=== PATIENT | male | born 1940 | race African-American/Black ===

== ENCOUNTER 2019-03-05 23:38 | Inpatient (IN) | payer MEDICARE, MEDICAID ==
[~2019-03-05] VITALS: Ht 172.7 cm; Wt 77.1 kg
[2019-03-06 00:38] LABS: BASOPHILS % 1.1 % (0.0-2.0); EOSINOPHILS % 3.2 % (0.0-5.0); HEMATOCRIT. 36.4 % (42.0-52.0); HEMOGLOBIN. 11.9 g/dL (14.0-18.0); LYMPHOCYTES % 34.7 % (20.0-50.0); MEAN CORPUSCULAR HEMOGLOBIN 28.3 pg (28.0-32.0); MEAN CORPUSCULAR VOLUME 86.2 fL (80.0-94.0); MEAN PLATELET VOLUME 8.8 fl (7.4-10.4); MONOCYTES % 10.6 % (2.0-8.0); NEUTROPHILS % 50.4 % (40.0-76.0); PLATELET 168 x1000/uL (130-400); RED BLOOD CELL COUNT 4.22 mill/uL (4.7-6.1); RED CELL DISTRIBUTION WIDTH 13.1 % (11.6-14.6)
[2019-03-06 00:39] LABS: CHLORIDE 107 mEq/L (98-107)
[2019-03-06 00:41] LABS: INR 1.1; PROTHROMBIN TIME 11.2 sec (9.6-11.0)
[2019-03-06 00:48] LABS: LDL CHOLESTEROL 87 mg/dL (5-100)
[2019-03-06] MEDS ORDERED: ASPIRIN 81MG TABLET PO ONE (02:30)
[2019-03-06 06:27] LABS: CLARITY URINE CLEAR (CLEAR); COLOR URINE YELLOW (YELLOW); KETONES URINE TRACE (NEGATIVE); LEUKOCYTE ESTERASE URINE NEGATIVE (NEGATIVE); NITRITE URINE NEGATIVE (NEGATIVE); OCCULT BLOOD URINE NEGATIVE (NEGATIVE); PROTEIN URINE NEGATIVE (NEGATIVE); SPECIFIC GRAVITY URINE 1.025 (1.005-1.030); UROBILINOGEN URINE 0.2 E.U./dL (0.2-1.0)
[2019-03-06 12:00] VITALS: BP 151/62
[2019-03-06] MEDS ORDERED: NON FORMULARY PATIENT HOME MED XX SCH (12:30)
[2019-03-06] MEDS ORDERED: TADA5TAB MT (13:19)
[2019-03-06] MEDS ORDERED: MIRA50TA PO (13:20)
[2019-03-06] MEDS ORDERED: TAMS0.4C31 PO (13:22)
[2019-03-06 14:00] VITALS: BP_SYST 116; BP_SYST 129; BP_SYST 138; BP_DIAS 61; BP_DIAS 66; BP_DIAS 71
[2019-03-06] MEDS: TADALAFIL 5 MG PO SCH (15:05)
[2019-03-06 16:53] VITALS: BP 151/62
[2019-03-06] MEDS ORDERED: SODIUM CHLORIDE 0.9% 500 ML IV ONE (17:45)
[2019-03-06 20:00] VITALS: BP_SYST 129; BP_SYST 133; BP_DIAS 60; BP_DIAS 62
[2019-03-06] MEDS ORDERED: TAMSULOSIN HCL 0.4MG SR CAPSULE PO SCH ×2 (21:00)
[2019-03-06 22:01] LABS: EOSINOPHILS % 3.1 % (0.0-5.0); HEMATOCRIT. 37.8 % (42.0-52.0); HEMOGLOBIN. 12.8 g/dL (14.0-18.0); LYMPHOCYTES % 32.2 % (20.0-50.0); MEAN CORPUSCULAR HEMOGLOBIN 29.3 pg (28.0-32.0); MEAN CORPUSCULAR VOLUME 86.1 fL (80.0-94.0); MONOCYTES % 9.6 % (2.0-8.0); NEUTROPHILS % 54.1 % (40.0-76.0); PLATELET 172 x1000/uL (130-400); RED BLOOD CELL COUNT 4.39 mill/uL (4.7-6.1); RED CELL DISTRIBUTION WIDTH 13.1 % (11.6-14.6)
[2019-03-06 22:06] LABS: CHLORIDE 108 mEq/L (98-107)
[2019-03-06 22:11] LABS: PHOSPHORUS 3.2 mg/dL (2.5-4.9)
[2019-03-07] VITALS: BP 130/65
[2019-03-07 04:00] VITALS: BP 133/80
[2019-03-07 06:03] LABS: BASOPHILS % 0.8 % (0.0-2.0); EOSINOPHILS % 2.8 % (0.0-5.0); HEMOGLOBIN. 12.2 g/dL (14.0-18.0); LYMPHOCYTES % 25.5 % (20.0-50.0); MEAN CORPUSCULAR HEMOGLOBIN 29.3 pg (28.0-32.0); MEAN CORPUSCULAR VOLUME 86.2 fL (80.0-94.0); MEAN PLATELET VOLUME 9.3 fl (7.4-10.4); NEUTROPHILS % 60.9 % (40.0-76.0); PLATELET 165 x1000/uL (130-400); RED BLOOD CELL COUNT 4.18 mill/uL (4.7-6.1)
[2019-03-07 06:54] LABS: CHLORIDE 107 mEq/L (98-107)
[2019-03-07 08:00] VITALS: BP_SYST 116; BP_SYST 130; BP_SYST 132; BP_DIAS 68; BP_DIAS 70
[2019-03-07] MEDS ORDERED: ASPIRIN 81MG TABLET PO SCH (09:00)
[2019-03-07] MEDS: TADALAFIL 5 MG PO SCH (09:07)
[2019-03-07 12:00] VITALS: BP 123/56
[2019-03-07 16:00] VITALS: BP_SYST 116; BP_SYST 131; BP_SYST 148; BP_DIAS 70; BP_DIAS 71
[2019-03-07 16:31] VITALS: BP 148/71
[2019-03-07] MEDS ORDERED: SODIUM CHLORIDE 0.9% 500 ML IV ONE (17:45)
== END 2019-03-07 17:15 | disposition home health service (06) | DRG 312 ==
LOC: ER 23:38 → 7WST 03-06 02:21 → EDBEDREQSVC 03-06 02:23 → EDBEDREQTM 03-06 02:23 → EDBEDREQ 03-06 02:23 → ENRESERV 03-06 09:52 → CANRESERV 03-06 09:52 → ENRESERV 03-06 10:35
PROVIDERS: ADMIT Internal Medicine; ATTEND Internal Medicine
DX: I95.2 Hypotension due to drugs (principal); H91.90 Unspecified hearing loss, unspecified ear; G90.8 Other disorders of autonomic nervous system; N40.1 Benign prostatic hyperplasia with lower urinary tract symptoms; N32.81 Overactive bladder; R59.9 Enlarged lymph nodes, unspecified; T44.6X5A Adverse effect of alpha-adrenoreceptor antagonists, initial encounter; T50.995A Adverse effect of other drugs, medicaments and biological substances, initial encounter; Y92.89 Other specified places as the place of occurrence of the external cause
CPT/HCPCS: 36415; 71045; 80048; 80069; 82962; 83721; 83735; 84100; 84484; 84550; 93005; 96361; 96374; 96375; 99285; J7040

== ENCOUNTER → 2019-03-24 | Outpatient (CLI) | payer MEDICARE, MEDICAID ==
[~2019-03-24] MED LIST: MIRA50TA PO; TADA5TAB MT; TAMS0.4C31 PO
== END | disposition home or self-care (01) ==
LOC: CARD 09:24
PROVIDERS: ATTEND Psychiatry & Neurology Neurology
DX: R41.3 Other amnesia (principal)

== ENCOUNTER 2019-08-15 15:29 | Emergency (ER) | payer MEDICARE, MEDICAID ==
[~2019-08-15] VITALS: Ht 172.7 cm; Wt 75.0 kg
[2019-08-15 17:51] LABS: CLARITY URINE CLEAR (CLEAR); COLOR URINE ORANGE (YELLOW); KETONES URINE TRACE (NEGATIVE); LEUKOCYTE ESTERASE URINE TRACE (NEGATIVE); NITRITE URINE POSITIVE (NEGATIVE); OCCULT BLOOD URINE NEGATIVE (NEGATIVE); PROTEIN URINE NEGATIVE (NEGATIVE)
[2019-08-15 18:02] VITALS: BP 155/79
== END 2019-08-15 18:14 | disposition home or self-care (01) ==
LOC: ER 15:29
DX: R33.9 Retention of urine, unspecified (principal); N40.0 Benign prostatic hyperplasia without lower urinary tract symptoms; N39.0 Urinary tract infection, site not specified; Z85.46 Personal history of malignant neoplasm of prostate
CPT/HCPCS: 81003; 99284; A4315

== ENCOUNTER 2019-08-16 04:46 | Emergency (ER) | payer MEDICARE, MEDICAID ==
[~2019-08-16] VITALS: Ht 172.7 cm; Wt 75.0 kg
[2019-08-16] MEDS ORDERED: ONDANSETRON HCL 4MG/2ML INJ IV STA (06:20)
[2019-08-16] MEDS ORDERED: MORPHINE SULFATE 4 MG/ML CPJ (NOT FOR IM USE) IV STA (06:20)
[2019-08-16 07:03] LABS: CLARITY URINE CLEAR (CLEAR); COLOR URINE DARK YELLOW (YELLOW); KETONES URINE TRACE (NEGATIVE); LEUKOCYTE ESTERASE URINE NEGATIVE (NEGATIVE); NITRITE URINE POSITIVE (NEGATIVE); OCCULT BLOOD URINE 1+ (NEGATIVE); PROTEIN URINE NEGATIVE (NEGATIVE); SPECIFIC GRAVITY URINE 1.012 (1.005-1.030)
[2019-08-16 07:13] LABS: HEMATOCRIT. 34.6 % (42.0-52.0); HEMOGLOBIN. 11.8 g/dL (14.0-18.0); MEAN CORPUSCULAR VOLUME 85.3 fL (80.0-94.0); MEAN PLATELET VOLUME 8.8 fl (7.4-10.4); PLATELET 157 x1000/uL (130-400); RED BLOOD CELL COUNT 4.06 mill/uL (4.7-6.1); RED CELL DISTRIBUTION WIDTH 13.4 % (11.6-14.6)
[2019-08-16 07:15] LABS: CHLORIDE 101 mEq/L (98-107)
[2019-08-16 07:21] LABS: INR 1.1; PARTIAL THROMBOPLASTIN TIME 29.5 sec (23.4-31.0); PROTHROMBIN TIME 11.6 sec (9.6-11.0)
[2019-08-16 07:35] LABS: *AMPHETAMINES SCREEN URINE NEGATIVE (NEGATIVE); *BARBITURATES SCREEN URINE NEGATIVE (NEGATIVE)
[2019-08-16 07:36] LABS: *BENZODIAZEPINES SCREEN URINE NEGATIVE (NEGATIVE); *COCAINE SCREEN URINE NEGATIVE (NEGATIVE); CANNABINOID URINE SCREEN NEGATIVE (NEGATIVE); METHADONE URINE SCREEN NEGATIVE (NEGATIVE); OPIATES URINE SCREEN PRESUMTIVE POSITIVE (NEGATIVE); PHENCYCLIDINE URINE SCREEN NEGATIVE (NEGATIVE)
[2019-08-16 07:44] LABS: PLATELET ESTIMATE NORMAL
[2019-08-16 08:10] VITALS: BP 134/68
== END 2019-08-16 08:27 | disposition home or self-care (01) ==
LOC: ER 04:46
DX: N39.0 Urinary tract infection, site not specified (principal); R33.9 Retention of urine, unspecified; Z79.899 Other long term (current) drug therapy; Z85.46 Personal history of malignant neoplasm of prostate
CPT/HCPCS: 36415; 51702; 80053; 80305; 81003; 85025; 85610; 85730; 96374; 96375; 99284; J2270; J2405; A4315

== ENCOUNTER 2019-08-20 17:42 | Emergency (ER) | payer MEDICARE, MEDICAID ==
[~2019-08-20] VITALS: Ht 177.8 cm; Wt 77.0 kg
[2019-08-21 01:33] VITALS: BP 133/61
== END 2019-08-21 01:48 | disposition home or self-care (01) ==
LOC: ER 18:00
DX: T83.018A Breakdown (mechanical) of other urinary catheter, initial encounter (principal); R33.9 Retention of urine, unspecified; Z79.899 Other long term (current) drug therapy
CPT/HCPCS: 51702; 99284; A4315